=== PATIENT | female | born 1975 | race Two or more races ===

== ENCOUNTER 2018-05-28 15:08 | Observation (INO) | payer MEDICAID ==
[~2018-05-28] VITALS: Ht 157.5 cm; Wt 67.0 kg
[2018-05-28] MEDS ORDERED: SODIUM CHLORIDE FLUSH 10ML SYR IVF ONE (15:30)
[2018-05-28 15:53] LABS: BASOPHILS # (AUTO) 0.02 x10^3/uL (0-0.1); BASOPHILS % (AUTO) 0 % (0-1); EOSINOPHILS # (AUTO) 0.06 x10^3/uL (0-0.4); EOSINOPHILS % (AUTO) 1 % (1-7); LYMPHOCYTES # (AUTO) 1.89 x10^3/uL (1-3.4); LYMPHOCYTES % (AUTO) 32 % (22-44); MD NO; MEAN CORPUSCULAR HEMOGLOBIN 28.5 pg (27.0-34.8); MEAN CORPUSCULAR HGB CONC 33.7 g/dL (32.4-35.8); MEAN CORPUSCULAR VOLUME 84.6 fL (80-100); MEAN PLATELET VOLUME 8.3 fL (7.4-10.4); MONOCYTES # (AUTO) 0.48 x10^3/uL (0.2-0.8); MONOCYTES % (AUTO) 8 % (2-9); NEUTROPHILS % (AUTO) 59 % (42-75); PLATELET COUNT 248 x10^3/uL (130-400); RED BLOOD COUNT 4.14 x10^6/uL (3.82-5.3); RED CELL DISTRIBUTION WIDTH 13.9 % (9.6-15.2)
[2018-05-28 15:55] LABS: CULTURE INDICATED? NO; MICROSCOPIC AUTO
[2018-05-28 16:02] LABS: ALBUMIN 3.7 g/dL (3.4-5.0); ANION GAP 7 mmol/L (5-15); CALCIUM 8.6 mg/dL (8.5-10.1); CHLORIDE 110 mmol/L (98-107); CREATININE 0.71 mg/dL (0.55-1.02)
[2018-05-28] MEDS ORDERED: OMNIPAQUE 350 MG/ML, 100ML BOTTLE ONE (17:22)
[2018-05-28] MEDS ORDERED: CEFOTETAN PMX 1GM/50ML 50 ML IV ONE (18:00)
[2018-05-28] MEDS ORDERED: CEFOTETAN PMX 1GM/50ML 50 ML ONE (18:03)
[2018-05-28] MEDS ORDERED: D5%-0.45% NACL 1,000 ML IV ONE (18:03)
[2018-05-28] MEDS ORDERED: ONDANSETRON 2MG/ML, 2ML IVPush PRN (18:30)
[2018-05-28] MEDS ORDERED: MORPHINE SULFATE 4 MG/ML, 1ML IVPush PRN (18:30)
[2018-05-28] MEDS ORDERED: SODIUM CHLORIDE FLUSH 10ML SYR IVF PRN (18:30)
[2018-05-28 19:30] VITALS: BP 122/72
[2018-05-28] MEDS ORDERED: BUPIVACAINE/PF-EPI 0.5% 1:200K ONE (21:17)
[2018-05-28] MEDS ORDERED: MIDAZOLAM 1 MG/ML, 2ML ONE (22:00)
[2018-05-28] MEDS ORDERED: FENTANYL PF 250 MCG/5ML ONE (22:00)
[2018-05-28] MEDS ORDERED: DEXAMETHASONE 4 MG/ML, 5ML ONE (22:01)
[2018-05-28] MEDS ORDERED: NEOSTIGMINE 1 MG/ML, 10ML ONE (22:01)
[2018-05-28] MEDS ORDERED: ONDANSETRON 2MG/ML, 2ML ONE (22:01)
[2018-05-28] MEDS ORDERED: PROPOFOL 10 MG/ML, 20ML ONE (22:01)
[2018-05-28] MEDS ORDERED: ROCURONIUM 10 MG/ML,10ML ONE (22:01)
[2018-05-28] MEDS ORDERED: KETOROLAC 30 MG/1 ML ONE (22:01)
[2018-05-28] MEDS ORDERED: GLYCOPYRROLATE 0.2MG/1ML, 5ML ONE (22:01)
[2018-05-28] MEDS ORDERED: FENTANYL PF 100 MCG/2ML IV PRN (22:30)
[2018-05-28] MEDS ORDERED: MEPERIDINE/PF 25MG/0.5ML IVPush PRN (22:30)
[2018-05-28] MEDS ORDERED: HYDROmorphone 1 MG/ML, 1ML IV PRN (22:30)
[2018-05-28] MEDS ORDERED: ONDANSETRON ODT 8 MG PO PRN (22:30)
[2018-05-28] MEDS ORDERED: OXYcodone 5 MG/5 ML ORAL.SOL UDC PO PRN (22:30)
[2018-05-28] MEDS ORDERED: ACETAMINOPHEN 325 MG TABLET PO PRN (22:30)
[2018-05-28] MEDS ORDERED: OXYcodone 5 MG/5 ML ORAL.SOL UDC ONE (23:00)
[2018-05-29] MEDS ORDERED: LACTATED RINGERS 1,000 ML IV SCH (01:30)
[2018-05-29] MEDS ORDERED: ENOXAPARIN 40 MG/0.4 ML SQ SCH (01:30)
[2018-05-29] MEDS ORDERED: ONDANSETRON 2MG/ML, 2ML IVPush PRN (01:30)
[2018-05-29] MEDS ORDERED: OXYcodone 5 MG/5 ML ORAL.SOL UDC PO PRN (01:30)
[2018-05-29] MEDS ORDERED: DIPHENHYDRAMINE 50 MG/ML, 1ML IVPush PRN (01:30)
[2018-05-29] MEDS ORDERED: KETOROLAC 30 MG/1 ML IV PRN (01:30)
[2018-05-29 02:15] VITALS: BP 93/62
[2018-05-29] MEDS: ACETAMINOPHEN 500 MG TABLET PO SCH ×2 (02:26→08:40)
[2018-05-29] MEDS ORDERED: ACET325C5 PO (04:56)
[2018-05-29] MEDS ORDERED: IBUP-1222 PO (04:57)
[2018-05-29] MEDS ORDERED: OXYC5TAB2 PO (04:59)
[2018-05-29] MEDS ORDERED: IBUPROFEN 600 MG TABLET PO SCH (06:00)
[2018-05-29 08:01] VITALS: BP 100/65
== END 2018-05-29 11:49 | disposition home or self-care (01) ==
LOC: ED 17:48 → EDIP 18:03 → INTOOBSV 18:03 → 3NE 18:50 → DCLOUNGE 05-29 11:49
PROVIDERS: ADMIT Surgery; ATTEND Surgery
DX: K35.80 Unspecified acute appendicitis (principal); R11.2 Nausea with vomiting, unspecified
CPT/HCPCS: 36415; 44970; 74177; 80048; 81001; 82040; 84703; 85025; 87086; 88304; 96361; 96365; 99285; G0378; J1100; J1885; J2250; J2405; J2704; J2710; J3010; J3490; Q9967; S0074